=== PATIENT | female | born 1985 | race African-American/Black ===

== ENCOUNTER 2018-08-20 20:11 | Emergency (ER) | payer OTHER, BC ==
[~2018-08-20] VITALS: Ht 167.6 cm; Wt 109.7 kg
[~2018-08-20 20:11] MED LIST: MULT1TAB18; PREN1TAB49
[2018-08-20 20:44] VITALS: Ht 167.6 cm; Wt 109.7 kg
--- NOTE | 2018-08-20 23:29 | ERD ---
ER Documentation Chief Complaint Chief Complaint C/O ON AND OFF PAIN TO RT KNEE X1 MONTH HPI This is a 33-year-old female presents emergency department with complaints of right knee pain for about a month. Stated that this has been on and off. 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 LMP: Stated that was in July 29, 2018. G3, . Denies headache, head injury, loss of consciousness, dizziness, neck pain, neck stiffness, throat pain, difficulty swallowing, difficulty breathing lying flat, shoulder pain, chest pain, back pain, abdominal pain, nausea, vomiting, constipation, diarrhea, urinary symptoms, or possibility being pregnan t, loss of bowel and bladder control, trauma, injury, falls, difficulty walking due to pain, numbness or tingling sensation, calf pain, recent travel, recent major surgery in the last 3 weeks, calf pain, recent long travel, recent exposure to any illness, recent antibiotic use in the last 3 months, fever, chills, seizures. Past medical history: Denies. Surgical history: Denies Social: Denies smoking, use of alcoholic beverages, use of illegal drugs. ROS All systems reviewed and are negative except as per history of present illness. Medications Home Meds Active Scripts Ibuprofen* (Motrin*) 800 Mg Tab, 800 MG PO Q6H PRN for PAIN AND OR ELEVATED TEMP, #30 TAB Prov:MELLISSA HURTADO 08/20/18 Reported Medications Multivits,Therap W-Fe,Hematin (Iromin-G) 1 Tab Tablet 02/05/12 Vits W-Ca,Fe,Fa(<1MG) () 1 Tab Tablet 02/05/12 Allergies Allergies: Coded Allergies: No Known Allergy (Verified , 02/05/12) PMhx/Soc History of Surgery: Yes (CERVICAL BIOPSY (2010)) Anesthesia Reaction: No Hx Neurological Disorder: No Hx Respiratory Disorders: No Hx Cardiac Disorders: No Hx Psychiatric Problems: No Hx Miscellaneous Medical Probl: No Hx Alcohol Use: No Hx Substance Use: No Hx Tobacco Use: No Smoking Status: Never smoker Physical Exam Vitals Physical Exam Const: No acute distress Head: Atraumatic Eyes: Normal Conjunctiva ENT: Normal External Ears, Nose and Mouth. Neck: Full range of motion. No meningismus. Resp: Clear to auscultation bilaterally Cardio: Regular rate and rhythm, no murmurs Abd: Soft, non tender, non distended. Normal bowel sounds Skin: No petechiae or rashes Back: No midline or flank tenderness. No saddle anesthesia. Ext: No cyanosis, or edema. Left knee: Unremarkable. Right knee: No swelling. No obvious deformity. Good and full range of motion. No tenderness to palpation. Able to bear weight on left lower extremity. Able to bear weight on right lower extremity. Able to perform a squat. Bilateral hips are stable and unremarkable. Capillary appears to bilateral lower extremities are less than 2 seconds. No calf tenderness bilaterally. Bilateral pedal pulses are within normal limits. Sensation is intact. No neurovascular deficit. Ambulatory with steady gait. Neur: Awake and alert. No neurological deficits. Psych: Normal Mood and Affect Results 24 hrs Current Medications Medications Dose Sig/Ander Start Time Status Last (Trade) Ordered Route PRN Stop Time Admin Dose Reason Admin 1 tab ONCE ONCE 08/20/18 DC 08/20/18 Acetaminophen PO 23:30 08/20/18 23:47 / 23:31 Hydrocodone Bitart (Hudson (10/325)) Ibuprofen 800 mg ONCE ONCE 08/20/18 DC 08/20/18 (Motrin) PO 23:30 08/20/18 23:47 23:31 Procedures/MDM Diagnostic tests: Clinical exam. Treatment: Hudson. Motrin. Rob wrap. Re-evaluation: No neurovascular deficit prior to and after the application of Rob wrap. Capillary feels to bilateral lower extremities are less than 2 seconds. Stated that she feels much better this time and that she is ready to go home. Stated that she is comfortable to go home. Differential diagnosis I have low suspicion for displaced fracture, comminuted fracture, compartment syndrome, DVT. Final diagnosis: Knee pain. Prescription: Motrin. Follow-up with PCP in the next 24-48 hours. PCP to do an MRI of the right knee. PCP to refer patient to clinical education specialist in the next 3 to 5 days. Come back here in the emergency department for any new symptoms or any worsening symptoms. All questions and concerns were answered. Patient and family members verbalized understanding and agreed with plan of care. Hemodynamically stable on discharge. Departure Diagnosis: Primary Impression: Knee pain Condition: Stable Additional Instructions: Follow-up with PCP in the next 24-48 hours. PCP to do an MRI of the right knee. PCP to refer patient to clinical education specialist in the next 3 to 5 days. Come back here in the emergency department for any new symptoms or any worsening symptoms. MELLISSA HURTADO Aug 20, 2018 23:29
[2018-08-20] MEDS ORDERED: IBUPROFEN 800 MG TAB PO ONE (23:30)
[2018-08-20] MEDS ORDERED: HYDROCODONE/APAP (10/325) TAB PO ONE (23:30)
[2018-08-20] MEDS ORDERED: IBUP800T48 PO (23:55)
[2018-08-21 01:05] VITALS: BP 116/69; PULSE 68; RESP 18
== END 2018-08-21 01:06 | disposition home or self-care (01) ==
LOC: FTE 20:11
DX: M25.561 Pain in right knee (principal)
CPT/HCPCS: 99283